=== PATIENT | female | born 1970 | race Caucasian/White ===

== ENCOUNTER 2019-10-22 14:37 | Outpatient (CLI) | payer OTHER, SELFPAY ==
--- NOTE | 2019-10-22 14:48 | XR_ITS ---
WS: [id number] Chest 2 views, 10/22/2019 Clinical Data: SHORTNESS OF BREATH, COUGH Comparison: PA chest, 07/29/2009. Findings: No nodules, masses or effusions are seen. The heart is normal. The pulmonary vascularity is not increased. No pneumonia or pneumothorax is seen. The patient's clothing obscures minimal detail over the central thorax. XR/XR chest 2V* [id number] Impression: Negative chest.
== END 2019-10-22 14:38 | disposition home or self-care (01) ==
LOC: RAD 14:41
PROVIDERS: Family Provider Family Medicine; Visit Provider Emergency Medicine
DX: R06.02 Shortness of breath (principal); R05 Cough
CPT/HCPCS: 71046

== ENCOUNTER → 2020-03-15 10:27 | Outpatient (BNVA) | payer OTHER, SELFPAY | PROVIDERS: Family Provider Family Medicine; Visit Provider Family Medicine | DX: Z20.828 Contact with and (suspected) exposure to other viral communicable diseases (principal) | CPT/HCPCS: 87635 ==

== ENCOUNTER 2020-10-20 18:11 | Outpatient (CLI) | payer OTHER, SELFPAY ==
[2020-10-22 14:17] LABS: Quest SARS-CoV-2 RNA NOT DETECTED (NOT DETECTED)
--- NOTE | 2020-10-22 17:34 | PC.NURSE ---
notified pt of negative COVID results
== END 2020-10-20 18:12 | disposition home or self-care (01) ==
PROVIDERS: Visit Provider Family Medicine
DX: Z20.822 Contact with and (suspected) exposure to COVID-19 (principal)
CPT/HCPCS: 87635

== ENCOUNTER 2021-03-30 15:31 | Outpatient (CLI) | payer OTHER, SELFPAY ==
[2021-03-30 16:17] LABS: Urine Color Orange (Yellow)
[2021-03-30 16:19] LABS: Nitrate Urine Not Tested (Negative)
[2021-03-30 16:20] LABS: Bilirubin Urine Not Tested (Negative); Protein Urine 2+ (Negative); Urine Appearance Hazy (CLEAR); Urobilinogen Urine Not Tested mg/dL (Negative); pH Urine 5 (5-7)
[2021-03-30 16:21] LABS: Add Urine Culture? Yes; Add Urine Microscopic? YES; Blood Urine Neg (Negative); Glucose Urine UA Norm (Normal); Ketones Urine Negative (Negative); Leukocyte Esterase Urine Negative (Negative); RBC Urine 0-4 /hpf (0-2); WBC Urine 0-4 /hpf (0-5)
== END 2021-03-30 15:32 | disposition home or self-care (01) ==
LOC: LAB 15:32
PROVIDERS: Visit Provider Nurse Practitioner Family
DX: N23 Unspecified renal colic (principal)
CPT/HCPCS: 81001

== ENCOUNTER → 2021-04-25 10:44 | Outpatient (BNVA) | payer OTHER, SELFPAY | PROVIDERS: Visit Provider Family Medicine | DX: Z20.822 Contact with and (suspected) exposure to COVID-19 (principal) | CPT/HCPCS: 87426; 87635 ==

== ENCOUNTER → 2022-02-04 09:18 | Outpatient (BNVA) | payer OTHER, SELFPAY | PROVIDERS: PCP Family Medicine; Visit Provider Clinical Nurse Specialist Adult Health | DX: J02.0 Streptococcal pharyngitis (principal) | CPT/HCPCS: 87880 ==

== ENCOUNTER → 2022-02-21 08:00 | Outpatient (BNVA) | payer OTHER, SELFPAY | PROVIDERS: PCP Family Medicine; Visit Provider Clinical Nurse Specialist Adult Health | DX: J02.0 Streptococcal pharyngitis (principal); J06.9 Acute upper respiratory infection, unspecified; B08.5 Enteroviral vesicular pharyngitis | CPT/HCPCS: 87400; 87880 ==

== ENCOUNTER 2022-02-25 18:28 | Outpatient (CLI) | payer OTHER, SELFPAY ==
[2022-02-25 19:02] LABS: SARS Covid-2 Antigen negative (Negative)
[2022-02-25 19:04] LABS: Influenza A by IFA Positive (Negative); Influenza B by IFA Negative (Negative)
== END 2022-02-25 18:29 | disposition home or self-care (01) ==
PROVIDERS: PCP Family Medicine; Visit Provider Emergency Medicine
DX: R05.9 Cough, unspecified (principal); R50.9 Fever, unspecified; R09.81 Nasal congestion
CPT/HCPCS: 87426; 87804

== ENCOUNTER → 2023-01-23 08:38 | Outpatient (BNVA) | payer OTHER, SELFPAY | PROVIDERS: PCP Family Medicine; Visit Provider Nurse Practitioner Family | DX: R05.9 Cough, unspecified (principal); U07.1 COVID-19 | CPT/HCPCS: 87426 ==

== ENCOUNTER → 2023-02-06 08:40 | Outpatient (BNVA) | payer OTHER, SELFPAY | PROVIDERS: PCP Family Medicine; Visit Provider Nurse Practitioner Family | DX: J02.9 Acute pharyngitis, unspecified (principal) | CPT/HCPCS: 87880 ==

== ENCOUNTER 2023-04-03 13:12 | Emergency (ER) | payer OTHER, SELFPAY ==
[2023-04-03 13:27] VITALS: BP 180/115; PULSE 67; TEMP 36.8; O2SAT 98; BMI 43.0
--- NOTE | 2023-04-03 13:34 | CTR_ITS ---
PROCEDURE INFORMATION: Exam: CT Abdomen And Pelvis Without Contrast Exam date and time: 04/03/2023 2:11 PM Age: 52 years old Clinical indication: Abdominal pain; Flank; Right; Prior surgery; Surgery date: 6+ months; Surgery type: , karina, parital hyst; Additional info: Right flank pain TECHNIQUE: Imaging protocol: Computed tomography of the abdomen and pelvis without contrast. Radiation optimization: All CT scans at this facility use at least one of these dose optimization techniques: automated exposure control; mA and/or kV adjustment per patient size (includes targeted exams where dose is matched to clinical indication); or iterative reconstruction. REPORTING DATA: Count of CT and Cardiac NM exams in prior 12 months: This patient has received 0 known CTs and 0 known cardiac nuclear medicine studies in the 12 months prior to the current study. COMPARISON: CR XR chest 2V* [id number] 10/22/2019 3:13 PM RADIATION DOSE METRICS: Total DLP (mGy-cm): 1086 FINDINGS: Liver: No mass. Gallbladder and bile ducts: No calcified stones. No ductal dilation. Pancreas: No ductal dilation. Spleen: No splenomegaly. Adrenal glands: No mass. Kidneys and ureters: 8 mm proximal right ureteral calculus with severe hydronephrosis. Stomach and bowel: No obstruction. Appendix: No evidence of appendicitis. Intraperitoneal space: No free air. No significant fluid collection. Vasculature: No abdominal aortic aneurysm. Lymph nodes: No enlarged lymph nodes. Urinary bladder: No acute findings. Reproductive: Unremarkable as visualized. Bones/joints: Degenerative changes without acute findings. Soft tissues: Unremarkable. CT/CT kidney stone [id number] IMPRESSION: 8 mm right proximal ureteral calculus with severe hydronephrosis.
[2023-04-03] MEDS: sodium chloride 0.9% 1,000 ML 999 ML IV (13:41)
[2023-04-03] MEDS: ondansetron 2 mg/ML SDV 2 mL 4 MG IVP (13:42)
[2023-04-03] MEDS: ketorolac 30 mg/mL INJ IVP (13:42)
[2023-04-03 13:43] LABS: Basophils # 0.1 10^3/uL (0.0-0.1); Eosinophils # 0.2 10^3/uL (0.0-0.8); Eosinophils % 2.3 %; Hematocrit 42.2 % (36-47); Lymphocytes # 1.9 10^3/uL (0.8-4.8); Lymphocytes % 19.3 %; Mean Corpuscular HGB Conc 30.6 g/dL (30-55); Mean Corpuscular Hemoglobin 26.5 pg (27-33); Mean Corpuscular Volume 86.7 fl (85-98); Mean Platelet Volume 10.8 fL (7.4-10.4); Monocytes # 0.7 10^3/uL (0.2-0.9); Monocytes % 7.2 %; Neutrophils # 6.83 10^3/uL (1.8-7.7); Neutrophils % 69.7 %; Nucleated Red Blood Cells % 0 %; Platelet Count 319 10^3/cmm (157-399); Red Blood Count 4.87 10^6/uL (3.85-5.65); Red Cell Distribution Width 14.9 % (12.1-15.1); White Blood Count 9.81 10^3/uL (3.29-11.43)
--- NOTE | 2023-04-03 13:43 | ED_ITS ---
HPI - Female Genitourinary 2 General: Chief complaint: Urogenital-Female Stated complaint: adp, vomitting Time Seen by Provider: 04/03/23 13:27 Source: patient Mode of arrival: ambulatory Limitations: no limitations History of Present Illness: 52-year-old female states she had right flank pain that began this morning and is worsened throughout the day states pain is now very sharp in nature and radiating into her lower abdomen rates the pain an 8 out of 10 denies any tenderness to touch she denies any fever she has had some vomiting states she has had a hard time urinating as well. Associated symptoms: Reports abdominal pain and nausea; Deny headache(s) Review of Systems 2 Const: Denies: fever(s) or chills Eyes: Denies: eye discomfort ENMT: Denies: throat pain or dental pain Card: Denies: chest pain Resp: Denies: dyspnea GI: Reports: abdominal pain and nausea; Denies: vomiting or diarrhea : Reports: flank pain Musc: Denies: neck pain or back pain Skin/Breast: Denies: rash Neuro: Denies: headache(s) PFSH ED 2 PFSH: Medical History Major depression Generalized anxiety disorder Social History Smoking and tobacco/nicotine status: current some day tobacco/nicotine user Physical Exam 2 Const: COMMON NORMALS: no acute distress, patient oriented x3 and healthy appearing HENMT: COMMON NORMALS: normocephalic and atraumatic HEAD & SCALP: n ormocephalic and atraumatic Neck/C-Spine: COMMON NORMALS: full ROM and supple Chest: COMMONS NORMALS: normal inspection of the chest Resp: COMMON NORMALS: normal respiratory effort GI: COMMON NORMALS: Normal to inspection, nondistended, normoactive bowel sounds present, Soft to palpation, non-tender and no masses PALPATION: Yes Soft to palpation : COMMON NORMALS: Yes no CVA tenderness BLADDER/KIDNEY EXAM: Yes no CVA tenderness Back/Pelvis: COMMON NORMALS: no CVA tenderness Extremity: COMMON NORMALS: normal to inspection and full ROM Neuro: COMMON NORMALS: patient oriented x3, moves all extremities and no focal motor deficits Psych: COMMON NORMALS: mental status grossly normal, Normal thought process present and cooperative THOUGHT PROCESS: Normal thought process present Skin: COMMON NORMALS: no rashes or lesions noted and no wounds GENERAL SKIN EXAM: no rashes or lesions noted Course 2 Vital Signs: Vital signs: Vital Signs Temperature 98.3 F 04/03/23 13:27 Pulse Rate 61 04/03/23 15:17 Blood Pressure 190/94 04/03/23 15:17 Pulse Oximetry 95 04/03/23 15:17 Oxygen Delivery Me thod Room Air 04/03/23 15:17 MDM - Female Medical Decision Making Patient presents here with flank pain does have a kidney stone did have some nitrite on her urine she is afebrile here and has a normal white count she took an Azo this morning I did speak to urologist at [facility] Dr. Edwards who is going to see patient in 1 to 4 days. I am going to place her on Keflex along with pain medicine she is to follow-up with urology as scheduled I informed her if she has any worsening pain vomiting or fever she is to return to the ER immediately she understands agrees to plan Medical Records I reviewed the patient's medical records. Lab Data I reviewed the patient's lab results. 04/03/23 13:38 04/03/23 13:38 Radiology Impressions Abdomen/Pelvis CT 04/03/23 13:34 IMPRESSION: 8 mm right proximal ureteral calculus with severe hydronephrosis. Laboratory Results WBC 9.81 10^3/uL (3.29-11.43) 04/03/23 13:38 RBC 4.87 10^6/uL (3.85-5.65) 04/03/23 13:38 Hgb 12.90 g/dL (11.27-16.99) 04/03/23 13:38 Hct 42.2 % (36-47) 04/03/23 13:38 MCV 86.7 fl (85-98) 04/03/23 13:38 MCH 26.5 pg (27-33) L 04/03/23 13:38 MCHC 30.6 g/dL (30-55) 04/03/23 13:38 RDW 14.9 % (12.1-15.1) 04/03/23 13:38 Plt Count 319 10^3/cmm (157-399) 04/03/23 13:38 MPV 10.8 fL (7.4-10.4) H 04/03/23 13:38 Neut % (Auto) 69.7 % 04/03/23 13:38 Lymph % (Auto) 19.3 % 04/03/23 13:38 [place] % (Auto) 7.2 % 04/03/23 13:38 Eos % (Auto) 2.3 % 04/03/23 13:38 Baso % (Auto) 1.0 % 04/03/23 13:38 Neut # (Auto) 6.83 10^3/uL (1.8-7.7) 04/03/23 13:38 Lymph # (Auto) 1.9 10^3/uL (0.8-4.8) 04/03/23 13:38 [place] # (Auto) 0.7 10^3/uL (0.2-0.9) 04/03/23 13:38 Eos # (Auto) 0.2 10^3/uL (0.0-0.8) 04/03/23 13:38 Baso # (Auto) 0.1 10^3/uL (0.0-0.1) 04/03/23 13:38 Nucleated RBC % (auto) 0 % 04/03/23 13:38 Nucleated RBCs # 0.0 /100WBC 04/03/23 13:38 Sodium 139 mmol/L (136-145) 04/03/23 13:38 Potassium 4.3 mmol/L (3.5-5.1) 04/03/23 13:38 Chloride 105 mmol/L (98-107) 04/03/23 13:38 Carbon Dioxide 20 mmol/L (22-29) L 04/03/23 13:38 Anion Gap 18.3 (5-19) 04/03/23 13:38 BUN 24 mg/dL (6-20) H 04/03/23 13:38 Creatinine 0.9 mg/dL (0.5-0.9) 04/03/23 13:38 GFR Calculation 66.3 mL/min (90-130) L 04/03/23 13:38 Glucose 110 mg/dL (65-115) 04/03/23 13:38 Calculated Osmolality 293 mOsm/kg (285-295) 04/03/23 13:38 Calcium 9.7 mg/dL (8.5-10.5) 04/03/23 13:38 Total Bilirubin 0.2 mg/dL (0.15-1.2) 04/03/23 13:38 AST 17 U/L (0-32) 04/03/23 13:38 ALT 17 U/L (0-33) 04/03/23 13:38 Alkaline Phosphatase 80 U/L (35-105) 04/03/23 13:38 Total Protein 7.4 g/dL (6.6-8.7) 04/03/23 13:38 Albumin 4.3 g/dL (3.5-5.2) 04/03/23 13:38 Globulin 3.1 g/dL (1.3-4.6) 04/03/23 13:38 Lipase 47 U/L (13-60) 04/03/23 13:38 Urine Color [place] (Yellow) A 04/03/23 14:27 Urine Appearance Clear (CLEAR) 04/03/23 14:27 Urine pH 5 (5-7) 04/03/23 14:27 Ur Specific [place] 1.025 (1.005-1.030) 04/03/23 14:27 Urine Protein 3+ (Negative) H 04/03/23 14:27 Urine Glucose (UA) Norm (Normal) 04/03/23 14:27 Urine Ketones Negative (Negative) 04/03/23 14:27 Urine Blood 2+ (Negative) H 04/03/23 14:27 Urine Nitrate Positive (Negative) H 04/03/23 14:27 Urine Bilirubin 2+ (Negative) H 04/03/23 14:27 Urine Urobilinogen 8 mg/dL (Negative) H 04/03/23 14:27 Ur Leukocyte Esterase Negative (Negative) 04/03/23 14:27 Urine RBC 10-15 /hpf (0-2) H 04/03/23 14:27 Urine WBC 5-10 /hpf (0-5) H 04/03/23 14:27 Ur Squamous Epith Cells 0-4 /hpf (0-5) H 04/03/23 14:27 Amorphous Sediment Not Reportable 04/03/23 14:27 Urine Bacteria 1+ /hpf (NONE) H 04/03/23 14:27 Urine Mucus 1+ /hpf 04/03/23 14:27 All radiology interpretation(s) finalized by discharge Discharge Plan Discharge Patient Disposition: Home Clinical Impression: Kidney stone Condition: Stable Prescriptions: New hydrocodone-acetaminophen 5-325 mg tablet 1 tab PO Q6H PRN (Reason: pain) Qty: 14 0RF cephalexin 500 mg capsule 500 mg PO TID 7 Days Qty: 21 0RF ondansetron 4 mg tablet,disintegrating 4 mg PO Q6H PRN (Reason: nausea and vomiting) Qty: 14 0RF tamsulosin [Flomax] 0.4 mg capsule 0.4 mg PO DAILY Qty: 5 0RF No Action amoxicillin 875 mg tablet 875 mg PO BID 7 Days Qty: 14 0RF albuterol sulfate [Ventolin HFA] 90 mcg/actuation HFA aerosol inhaler 2 puff inhalation Q6H PRN (Reason: shortness of breath or wheezing) Qty: 8.5 0RF promethazine-DM 6.25-15 mg/5 mL syrup 5 ml PO Q6H PRN (Reason: cough) Qty: 200 0RF prednisone 20 mg tablet See Rx Instructions .Route .COMPLEX Qty: 14 0RF Rx Instructions: 2 tabs PO daily for 4 days, then 1 tab PO daily X 4 days, then 0.5 tab daily for 4 days, then stop; benzonatate 100 mg capsule 100 mg PO TID PRN (Reason: cough) Qty: 45 0RF escitalopram oxalate 10 mg tablet See Rx Instructions .ROUTE .COMPLEX Qty: 30 10RF Dose Instruction: TAKE 1 TABLET BY MOUTH EVERY DAY Rx Instructions: TAKE 1 TABLET BY MOUTH EVERY DAY propranolol 60 mg tablet See Rx Instructions .ROUTE .COMPLEX Qty: 60 10RF Dose Instruction: TAKE 1 TABLET BY MOUTH TWICE DAILY Rx Instructions: TAKE 1 TABLET BY MOUTH TWICE DAILY clonazepam 0.5 mg tablet 0.5 mg PO BID Qty: 60 2RF Discharge Orders: Discharge ED (Routine); Ordered 04/03/23 Ordered By: Lyly Carolina Referrals: Guy Bliss MD [Primary Care Provider] - Discharge Diet: Advance as tolerated Discharge Activity: Resume usual activity Patient Instructions: Kidney Stones (ED), Opioid Safety Coding Level of Care Code ED [employer] Dispatcher for Ericg Sarika
[2023-04-03 14:05] LABS: Alanine Aminotransferase 17 U/L (0-33); Albumin Level 4.3 g/dL (3.5-5.2); Alkaline Phosphatase 80 U/L (35-105); Anion Gap 18.3 (5-19); Aspartate Amino Transferase 17 U/L (0-32); Blood Urea Nitrogen 24 mg/dL (6-20); Calcium 9.7 mg/dL (8.5-10.5); Carbon Dioxide 20 mmol/L (22-29); Chloride 105 mmol/L (98-107); Globulin 3.1 g/dL (1.3-4.6); Glomerular Filtration Rate 66.3 mL/min (90-130); Glucose 110 mg/dL (65-115); Lipase 47 U/L (13-60); Osmolality Calculated 293 mOsm/kg (285-295); Potassium 4.3 mmol/L (3.5-5.1); Sodium 139 mmol/L (136-145); Total Bilirubin 0.2 mg/dL (0.15-1.2); Total Protein 7.4 g/dL (6.6-8.7)
[2023-04-03 14:54] LABS: Urine Appearance Clear (CLEAR); Urine Color Orange (Yellow)
[2023-04-03 14:55] LABS: Blood Urine 2+ (Negative); Glucose Urine UA Norm (Normal); Ketones Urine Negative (Negative); Nitrate Urine Positive (Negative); Protein Urine 3+ (Negative); Specific Gravity, Urine 1.025 (1.005-1.030); pH Urine 5 (5-7)
[2023-04-03 14:56] LABS: Bilirubin Urine 2+ (Negative); Urobilinogen Urine 8 mg/dL (Negative)
[2023-04-03 14:57] LABS: Add Urine Culture? Yes; Add Urine Microscopic? YES; Bacteria Urine 1+ /hpf; Leukocyte Esterase Urine Negative (Negative); Mucus Urine 1+ /hpf; Squamous Epithelial Cell Urine 0-4 /hpf (0-5)
[2023-04-03] MEDS: HYDROmorphone 1 mg/mL INJ 1 mL IVP (15:11)
[2023-04-03 15:17] VITALS: BP 190/94; PULSE 61; O2SAT 95
[2023-04-03] MEDS: cephALEXin 500 mg Capsule PO (16:04)
== END 2023-04-03 16:16 | disposition home or self-care (01) ==
PROVIDERS: Emergency Provider Emergency Medicine; PCP Family Medicine
DX: N13.2 Hydronephrosis with renal and ureteral calculous obstruction (principal); Z72.0 Tobacco use
CPT/HCPCS: 74176; 80053; 81001; 83690; 85025; 87086; 96374; 96375; 99285; J1170; J1885; J2405; J7030

== ENCOUNTER → 2023-07-21 13:56 | Outpatient (BNVA) | payer OTHER, SELFPAY | PROVIDERS: PCP Family Medicine; Visit Provider Family Medicine | DX: I10 Essential (primary) hypertension (principal) | CPT/HCPCS: 80053 ==

== ENCOUNTER 2023-12-15 18:21 | Emergency (ER) | payer OTHER, SELFPAY ==
--- NOTE | 2023-12-15 18:21 | XRR_ITS ---
PROCEDURE INFORMATION: Exam: XR Chest Exam date and time: 12/15/2023 6:53 PM Age: 52 years old Clinical indication: Pain; Chest pressure; Additional info: Cp TECHNIQUE: Imaging protocol: Radiologic exam of the chest. Views: 1 view. COMPARISON: CR XR chest 2V* [id number] 10/22/2019 3:13 PM FINDINGS: Lungs: Unremarkable. No consolidation. Pleural spaces: Unremarkable. No pleural effusion. No pneumothorax. Heart/Mediastinum: Unremarkable. No cardiomegaly. Bones/joints: Unremarkable. XR/XR chest 1V portable [id number] IMPRESSION: No acute findings.
--- NOTE | 2023-12-15 18:22 | ECG_ITS ---
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 Measurements Intervals [place] Rate: 81 P: 40 [place]: 138 QRS: 49 QRSD: 92 T: 55 QT: 377 QTc: 440 Interpretive Statements SINUS RHYTHM POSSIBLE LEFT ATRIAL ENLARGEMENT [-0.1mV P-WAVE IN V1/V2] Compared to ECG 04/06/2018 14:59:30 No significant changes Electronically Signed On 12-16-2023 7:49:20 CDT by Brett Peñaloza M.D. [id number]
[2023-12-15 18:28] VITALS: BP 173/105; PULSE 80; TEMP 36.6; O2SAT 98; BMI 43.8
[2023-12-15 18:51] LABS: Basophils # 0.1 10^3/uL (0.0-0.1); Basophils % 1.1 %; Eosinophils # 0.3 10^3/uL (0.0-0.8); Eosinophils % 2.9 %; Hematocrit 42.4 % (36-47); Lymphocytes # 3.5 10^3/uL (0.8-4.8); Lymphocytes % 35.7 %; Mean Corpuscular HGB Conc 30.9 g/dL (30-55); Mean Corpuscular Hemoglobin 25.4 pg (27-33); Mean Corpuscular Volume 82.3 fl (85-98); Mean Platelet Volume 10.4 fL (7.4-10.4); Monocytes # 0.7 10^3/uL (0.2-0.9); Neutrophils # 5.24 10^3/uL (1.8-7.7); Neutrophils % 52.8 %; Nucleated Red Blood Cells % 0 %; Platelet Count 349 10^3/cmm (157-399); Red Blood Count 5.15 10^6/uL (3.85-5.65); Red Cell Distribution Width 15.7 % (12.1-15.1); White Blood Count 9.92 10^3/uL (3.29-11.43)
[2023-12-15 19:10] LABS: INR 0.89 (0.8-1.2)
[2023-12-15] MEDS: ondansetron 2 mg/ML SDV 2 mL 4 MG IVP (19:10)
[2023-12-15 19:11] VITALS: RESP 18
[2023-12-15] MEDS: morphine 4 mg/mL SDV 1 mL IVP (19:11)
[2023-12-15 19:15] LABS: Alanine Aminotransferase 23 U/L (0-33); Albumin Level 4.4 g/dL (3.5-5.2); Alkaline Phosphatase 84 U/L (35-105); Anion Gap 16.2 (5-19); Aspartate Amino Transferase 21 U/L (0-32); Blood Urea Nitrogen 18 mg/dL (6-20); Calcium 9.7 mg/dL (8.5-10.5); Carbon Dioxide 26 mmol/L (22-29); Chloride 103 mmol/L (98-107); Creatinine Clr Calc Pharmacy 116.5594; Globulin 2.5 g/dL (1.3-4.6); Glomerular Filtration Rate 75.9 mL/min (90-130); Glucose 120 mg/dL (65-115); Lipase 43 U/L (13-60); Osmolality Calculated 295 mOsm/kg (285-295); Potassium 4.2 mmol/L (3.5-5.1); Sodium 141 mmol/L (136-145); Total Bilirubin 0.2 mg/dL (0.15-1.2); Total Protein 6.9 g/dL (6.6-8.7); Troponin(5th) Baseline < 6 ng/L (0-10)
[2023-12-15 19:27] VITALS: BP 148/114; PULSE 78; RESP 21; O2SAT 98
--- NOTE | 2023-12-15 19:38 | CTR_ITS ---
PROCEDURE INFORMATION: Exam: CTA Chest With Contrast Exam date and time: 12/15/2023 7:44 PM Age: 52 years old Clinical indication: Pain; Chest pressure; Additional info: Chest pain TECHNIQUE: Imaging protocol: Computed tomographic angiography of the chest with contrast. Exam focused on the arteries. 3D rendering (Not supervised by radiologist): MIP and/or 3D reconstructed images were created by the technologist. Radiation optimization: All CT scans at this facility use at least one of these dose optimization techniques: automated exposure control; mA and/or kV adjustment per patient size (includes targeted exams where dose is matched to clinical indication); or iterative reconstruction. Contrast material: OMNI 350; Contrast volume: 66 ml; Contrast route: INTRAVENOUS (IV); COMPARISON: CR (CHEST, ) 12/15/2023 6:53 PM RADIATION DOSE METRICS: Total DLP (mGy-cm): 574 FINDINGS: Pulmonary arteries: Normal. No pulmonary emboli. Aorta: Unremarkable. No aortic aneurysm. No aortic dissection. Lungs: Curvilinear areas of left basilar atelectasis or scarring. No consolidation. No masses. Pleural spaces: Unremarkable. No pneumothorax. No pleural effusion. Heart: Unremarkable. No cardiomegaly. No pericardial effusion. Lymph nodes: Unremarkable. No enlarged lymph nodes. Bones/joints: Unremarkable. No acute fracture. Soft tissues: Unremarkable. CT/CT angio chest PE protcl [id number] IMPRESSION: No acute findings. Negative for pulmonary embolism.
[2023-12-15] MEDS: iohexol 350 mg/mL 500 mL Btl (per mL) IV (19:47)
--- NOTE | 2023-12-15 19:54 | ED_ITS ---
HPI - Chest Pain 2 General: Chief Complaint: Chest Pain Stated Complaint: Chest Pain Time Seen by Provider: 12/15/23 18:34 History of Present Illness: -year-old female with a history of hyper tension who presents emergency room with left chest pain. She was at work yesterday was having some chest pain that she thought might be anxiety. She describes the left chest pain with pain in her left back and radiation into her left arm. No cardiac history. No extremity swelling. No abdominal pain. No nausea or vomiting. No cough. No fevers. No altered mental status. No focal motor deficit. She did take multiple nitroglycerin from her which did seem to help some with the pain and her blood pressure. Related Data Previous Rx's Medication Instructions Recorded amlodipine 5 mg tablet 5 mg PO DAILY #30 tabs 08/14/23 venlafaxine 150 mg 150 mg PO DAILY #30 caps 08/14/23 capsule,extended release 24 hr clonazepam 0.5 mg tablet 0.5 mg PO BID #60 tabs 10/16/23 Allergies Allergy/AdvReac Type Severity Reaction Status Date / Time lisinopril Allergy Intermediate cough Verified 12/15/23 18:33 Review of Systems 2 Narrative: Constitutional symptoms: Negative except as documented in HPI. Skin symptoms: Negative except as documented in HPI. Eye symptoms: Negative except as documented in HPI. ENMT symptoms: Negative except as documented in HPI. Respiratory symptoms: Negative except as documented in HPI. Cardiovascular symptoms: Negative except as documented in HPI. Gastrointestinal symptoms: Negative except as documented in HPI. Genitourinary symptoms: Negative except as documented in HPI. Musculoskeletal symptoms: Negative except as documented in HPI. Neurologic symptoms: Negative except as documented in HPI. Psychiatric symptoms: Negative except as documented in HPI. Endocrine symptoms: Negative except as documented in HPI. PFSH ED 2 PFSH: Medical History Major depression Generalized anxiety disorder Social History Smoking and tobacco/nicotine status: current some day tobacco/nicotine user Physical Exam 2 Narrative: EXAM NARRATIVE: General: Alert, no acute distress. Skin: Warm, dry. Head: Normocephalic, atraumatic. Neck: Supple, trachea midline. Eye: Extraocular movements are intact. Ears, nose, mouth and throat: mucosa moist. Cardiovascular: Regular, Normal peripheral perfusion. Respiratory: Lungs are clear to auscultation, respirations are non-labored, breath sounds are equal, Symmetrical chest wall expansion. Gastrointestinal: Soft, Nontender, Non distended Musculoskeletal: Normal ROM, no deformity. Neurological: Alert and oriented, No focal neurological deficit observed. Psychiatric: Cooperative, appropriate mood & affect. Course 2 Vital Signs: Vital signs: Vital Signs Temperature 97.9 F 12/15/23 18:28 Pulse Rate 68 12/15/23 20:55 Respiratory Rate 16 12/15/23 20:55 Blood Pressure 141/101 12/15/23 20:55 Pulse Oximetry 99 12/15/23 20:55 Oxygen Delivery Me thod Room Air 12/15/23 20:55 MDM - Chest Pain Medical Decision Making Differential diagnosis for patient with chest pain includes but is not limited to and based on the above HPI, review of systems and physical exam: Pneumonia. unstable angina. angina. Acute coronary syndrome / NM. Pulmonary embolism. Costochondritis / musculoskeletal. Pleurisy. Pericarditis. Esophageal spasm. Pancreatis. Cholecystitis. Orders placed to evaluate differential diagnosis based on the above differential, HPI and physical exam EKG: Time 1825. Rate 81. Normal sinus rhythm, No ST-T changes, no ectopy, normal [place] & QRS intervals, This was reviewed and interpreted by myself the ER physician at 1830. Repeat EKG: Time 2051. Rate 64. Normal sinus rhythm, No ST-T changes, no ectopy, normal [place] & QRS intervals, This was reviewed and interpreted by myself the ER physician at 2052. No significant changes from EKG done previously today in the emergency room other than the heart rate has decreased from 80-64. Chest x-ray: No acute process. No infiltrate. No pneumothorax. This was reviewed and interpreted by myself the ER physician. CTA of the chest with PE protocol: No acute process. This was reviewed and interpreted by myself the emergency room physician. I also reviewed the radiology report. Lab Review: Laboratory results were reviewed and interpreted by myself the emergency room physician. No leukocytosis. No anemia. BUN/creatinine are 18 and 0.8. Potassium is normal. Serial troponins are negative. HEART Pathway for Early Discharge in Acute Chest Pain from [facility] on 12/15/2023 All calculations should be rechecked by clinician prior to use RESULT SUMMARY: 3 points HEART Pathway Score Low risk 0.9-1.7% 30-day MACE Repeat troponin at 3 hours and if negative, discharge home with outpatient follow-up. INPUTS: History ?> 1 = Moderately suspicious EKG ?> 0 = Normal Age ?> 1 = 45-64 Risk factors ?> 1 = 1-2 risk factors Initial troponin ?> 0 = <=ormal limit I reviewed the patient's medical record. Reexamination: Patient remained stable. No increased work of breathing. No altered mental status. No focal motor deficits. Chest pain has improved to almost nothing at this point. We discussed at length this could be musculoskeletal pain. However most importantly she is not having any elevation in her cardiac markers which would indicate no ischemia or acute coronary syndrome at this time. Her blood pressure has improved some. We discussed getting a stress test in the very near future. Assessment and plan: Accelerated hypertension Chest pain ?Morphine and Zofran in the emergency room. - Discharged home - Discussed findings and plan with patient. Answered any questions. - All laboratory values were reviewed and interpreted personally by myself, the ER physician - All imaging was reviewed and interpreted personally by myself, the ER physician. - Evaluation and treatment of this problem were appropriate in the emergency setting Lab Data 12/15/23 18:46 12/15/23 18:46 Radiology Impressions Chest X-Ray 12/15/23 18:21 IMPRESSION: No acute findings. Chest CTA 12/15/23 19:38 IMPRESSION: No acute findings. Negative for pulmonary embolism. Laboratory Results WBC 9.92 10^3/uL (3.29-11.43) 12/15/23 18:46 RBC 5.15 10^6/uL (3.85-5.65) 12/15/23 18:46 Hgb 13.10 g/dL (11.27-16.99) 12/15/23 18:46 Hct 42.4 % (36-47) 12/15/23 18:46 MCV 82.3 fl (85-98) L 12/15/23 18:46 MCH 25.4 pg (27-33) L 12/15/23 18:46 MCHC 30.9 g/dL (30-55) 12/15/23 18:46 RDW 15.7 % (12.1-15.1) H 12/15/23 18:46 Plt Count 349 10^3/cmm (157-399) 12/15/23 18:46 MPV 10.4 fL (7.4-10.4) 12/15/23 18:46 Neut % (Auto) 52.8 % 12/15/23 18:46 Lymph % (Auto) 35.7 % 12/15/23 18:46 [place] % (Auto) 7.0 % 12/15/23 18:46 Eos % (Auto) 2.9 % 12/15/23 18:46 Baso % (Auto) 1.1 % 12/15/23 18:46 Neut # (Auto) 5.24 10^3/uL (1.8-7.7) 12/15/23 18:46 Lymph # (Auto) 3.5 10^3/uL (0.8-4.8) 12/15/23 18:46 [place] # (Auto) 0.7 10^3/uL (0.2-0.9) 12/15/23 18:46 Eos # (Auto) 0.3 10^3/uL (0.0-0.8) 12/15/23 18:46 Baso # (Auto) 0.1 10^3/uL (0.0-0.1) 12/15/23 18:46 Nucleated RBC % (auto) 0 % 12/15/23 18:46 Nucleated RBCs # 0.0 /100WBC 12/15/23 18:46 PT 12.30 SECONDS (12.1-14.9) 12/15/23 18:46 INR 0.89 (0.8-1.2) 12/15/23 18:46 Sodium 141 mmol/L (136-145) 12/15/23 18:46 Potassium 4.2 mmol/L (3.5-5.1) 12/15/23 18:46 Chloride 103 mmol/L (98-107) 12/15/23 18:46 Carbon Dioxide 26 mmol/L (22-29) 12/15/23 18:46 Anion Gap 16.2 (5-19) 12/15/23 18:46 BUN 18 mg/dL (6-20) 12/15/23 18:46 Creatinine 0.8 mg/dL (0.5-0.9) 12/15/23 18:46 GFR Calculation 75.9 mL/min (90-130) L 12/15/23 18:46 Glucose 120 mg/dL (65-115) H 12/15/23 18:46 Calculated Osmolality 295 mOsm/kg (285-295) 12/15/23 18:46 Calcium 9.7 mg/dL (8.5-10.5) 12/15/23 18:46 Total Bilirubin 0.2 mg/dL (0.15-1.2) 12/15/23 18:46 AST 21 U/L (0-32) 12/15/23 18:46 ALT 23 U/L (0-33) 12/15/23 18:46 Alkaline Phosphatase 84 U/L (35-105) 12/15/23 18:46 Troponin T Baseline < 6 ng/L (0-10) 12/15/23 18:46 Troponin T 120 Minute 6.00 ng/L (0-10) 12/15/23 20:24 Delta Troponin T 0.11534 ABS# (0-10) 12/15/23 20:24 Total Protein 6.9 g/dL (6.6-8.7) 12/15/23 18:46 Albumin 4.4 g/dL (3.5-5.2) 12/15/23 18:46 Globulin 2.5 g/dL (1.3-4.6) 12/15/23 18:46 Lipase 43 U/L (13-60) 12/15/23 18:46 All radiology interpretation(s) finalized by discharge Discharge Plan Discharge Patient Disposition: Home Clinical Impression: Chest pain, Accelerated hypertension Condition: Stable Prescriptions: No Action venlafaxine 150 mg capsule,extended release 24hr 150 mg PO DAILY Qty: 30 11RF amlodipine 5 mg tablet 5 mg PO DAILY Qty: 30 11RF clonazepam 0.5 mg tablet 0.5 mg PO BID Qty: 60 2RF Discharge Orders: Discharge ED (Routine); Ordered 12/15/23 Ordered By: Silvia Morocho Referrals: Guy Bliss MD [Primary Care Provider] - Discharge Diet: Usual diet Discharge Activity: Increase activity as tolerated Patient Instructions: Noncardiac Chest Pain (ED) Activity Restrictions/Additional Instructions: Thank you for choosing [facility] for your healthcare needs today. Please realize this is an emergency room and that we are providing you with a medical screening exam and this may not be complete and all inclusive of all the testing and or work up that you may need to determine your ailment or severity of your illness. You have been screened and evaluated and felt safe for discharge. Health conditions do change or evolve sometimes and as such it is important that you follow up with your Primary Doctor to be re checked, 3-5 days is a general good time frame for follow up. You are always welcome to return to the ED for re assessment if your symptoms are worsening or you have new concerns Coding Level of Care Code ED Machine Packager for Huyen Baum
[2023-12-15 20:19] VITALS: BP 148/100; PULSE 71; RESP 18; O2SAT 97
[2023-12-15 20:46] LABS: Troponin 5 2HR Delta 0.00001 ABS# (0-10)
--- NOTE | 2023-12-15 20:52 | ECG_ITS ---
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 Measurements Intervals [place] Rate: 64 P: 39 [place]: 138 QRS: 43 QRSD: 106 T: 51 QT: 430 QTc: 447 Interpretive Statements SINUS RHYTHM Compared to ECG 12/15/2023 18:26:22 No significant changes Electronically Signed On 12-16-2023 7:48:14 CDT by Brett Peñaloza M.D. [id number]
[2023-12-15 20:55] VITALS: BP 141/101; PULSE 68; RESP 16; O2SAT 99
[2023-12-15 21:01] VITALS: BP 156/103; PULSE 74; RESP 16; O2SAT 98
== END 2023-12-15 21:08 | disposition home or self-care (01) ==
PROVIDERS: Emergency Medicine; Emergency Provider Emergency Medicine; PCP Family Medicine
DX: R07.9 Chest pain, unspecified (principal); I10 Essential (primary) hypertension; Z72.0 Tobacco use
CPT/HCPCS: 36415; 71045; 71275; 80053; 83690; 84484; 85025; 85610; 93005; 96374; 96375; 99285; J2270; J2405

== ENCOUNTER 2023-12-23 07:12 | Day surgery (SDC) | payer OTHER, SELFPAY ==
[2023-12-23 07:39] VITALS: BP 164/94; PULSE 84; RESP 18; TEMP 36.3; O2SAT 97
[2023-12-23] MEDS: sodium chloride 0.9% 1,000 ML 30 ML IV (07:45)
--- NOTE | 2023-12-23 07:51 | W.PM.OPSUD ---
Surgery/Procedure H&P Update DATE OF PROCEDURE: December 23, 2023 DATE H&P PERFORMED: 12/18/23 H&P UPDATE INFORMATION: I have reviewed H&P completed within last 30 days, I have examined patient prior to procedure and No changes to prior documentation PLANNED PROCEDURE: Operation Date: 12/23/23 08:20 Proposed Procedures p EGD 32489, K25.9(Not Applicable) - Speedy Aponte MD
--- NOTE | 2023-12-23 08:09 | ANES.PREANE2 ---
Pre-Anesthetic Assessment Height/Weight: Height 5 ft 7 in Weight 279 lb Temp Pulse Resp BP Pulse Ox O2 Del Method 97.4 F L 84 18 164/94 97 Room Air 12/23/23 07:39 12/23/23 07:39 12/23/23 07:39 12/23/23 07:39 12/23/23 07:39 12/23/23 07:39 Preop Diagnosis: EGD Operation Date: 12/23/23 08:20 Proposed Procedures p EGD 19851, K25.9(Not Applicable) - Speedy Aponte MD Was Beta Deo taken within 24 hours: N/A Was Clonidine taken within 24 hours: N/A Last intake: Intake Last Liquid Date 12/22/23 Last Liquid Time 23:00 Last Solid Date 12/22/23 Last Solid Time 22:00 Social Tobacco and No alcohol Exam alert, oriented x 3, clear to auscultation bilaterally and regular rate & rhythm Airway Submandibular: within normal limits Cervical ROM: within normal limits Mallampati: Class III Dentition: full Anesthetic Plan ASA status: 3 Anesthesia: MAC Other: No prior issues with anesthesia NPO since midnight Hypertension on amlodipine Patient was recently seen in the ED for chest pain, cardiac workup negative GERD on omeprazole and pantoprazole Current smoker METs greater than 4 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 Plan for 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 Medications/Allergies Home Medications Medication Instructions Recorded Confirmed Last Taken Type venlafaxine 150 mg 150 mg PO DAILY #30 caps 08/14/23 12/22/23 12/22/23 Rx capsule,extended release 24 hr clonazepam 0.5 mg tablet 0.5 mg PO BID #60 tabs 10/16/23 12/22/23 12/23/23 Rx amlodipine 5 mg tablet 5 mg PO BID #60 tabs 12/16/23 12/22/23 12/23/23 Rx pantoprazole 40 mg tablet,delayed 40 mg PO DAILY #30 tabs 12/16/23 12/22/23 12/22/23 Rx release (Protonix) sucralfate 100 mg/mL oral 5 ml PO QID #400 mL 12/16/23 12/22/23 12/23/23 Rx suspension (Carafate) omeprazole 10 mg capsule,delayed 10 mg PO BID 12/18/23 12/22/23 12/22/23 History release Allergies Allergy/AdvReac Type Severity Reaction Status Date / Time lisinopril Allergy Intermediate cough Verified 12/18/23 10:46 Current Medications Generic Name Dose Route Start Last Admin Trade Name Den PRN Reason Stop Dose Admin Sodium Chloride 1,000 mls @ 30 mls/hr 12/23/23 07:15 12/23/23 07:45 Sodium Chloride 0.9% IV 12/24/23 07:14 30 mls/hr .Q24H ELAINE Administration PFSH Anesthesia Medical History (Updated 12/23/23 @ 00:01 by ELVIN Welch) Major depression Generalized anxiety disorder Family History (Updated 12/18/23 @ 10:57 by LEONID Byrd) Father Thyroid cancer Diabetes Mother Rheumatoid arthritis Social History Smoking and tobacco/nicotine status: current every day tobacco/nicotine user Data Anesthesia Cardiac Studies: No Data to Display
[2023-12-23 08:43] VITALS: BP 136/84; PULSE 71; RESP 16; TEMP 36.1; O2SAT 93
[2023-12-23 08:59] VITALS: BP 147/91; PULSE 64; RESP 18
--- NOTE | 2023-12-23 09:11 | ANE.PACU2 ---
Inpatient post-anesthesia follow up: Airway intact: Yes Vital signs: Temperature 97 F Pulse Rate 64 Respiratory Rate 18 Blood Pressure 147/91 Pulse Oximetry 93 Oxygen Delivery Me thod Room Air Oxygen Flow Rate Fraction of Inspir ed Oxygen Hydration adequate: Yes Nausea and vomiting: No Pain level: 1 Mental status: Baseline
== END 2023-12-23 09:11 | disposition home or self-care (01) ==
PROVIDERS: PCP Family Medicine; Visit Provider Student in an Organized Health Care Education/Training Program
PROC: 0DJ08ZZ Inspection of Upper Intestinal Tract, Via Natural or Artificial Opening Endoscopic (ICD-10-PCS; CPT 43235; principal; 2023-12-23 08:20)
DX: Z87.11 Personal history of peptic ulcer disease (principal); K29.50 Unspecified chronic gastritis without bleeding; K21.00 Gastro-esophageal reflux disease with esophagitis, without bleeding; F17.200 Nicotine dependence, unspecified, uncomplicated; I10 Essential (primary) hypertension
CPT/HCPCS: 43239; 88305; 88342; J3010; J7030

== ENCOUNTER → 2024-01-06 08:41 | Outpatient (BNVA) | payer OTHER, SELFPAY | PROVIDERS: PCP Family Medicine; Visit Provider Family Medicine | DX: Z78.9 Other specified health status (principal); K25.9 Gastric ulcer, unspecified as acute or chronic, without hemorrhage or perforation; R51.9 Headache, unspecified | CPT/HCPCS: 86003; 86008; 86677; 87624 ==

== ENCOUNTER → 2024-01-15 07:43 | Outpatient (BNVA) | payer OTHER, SELFPAY | PROVIDERS: PCP Family Medicine; Visit Provider Podiatrist Foot & Ankle Surgery | DX: M79.671 Pain in right foot (principal); M21.611 Bunion of right foot; M21.41 Flat foot [pes planus] (acquired), right foot; M21.42 Flat foot [pes planus] (acquired), left foot; M25.871 Other specified joint disorders, right ankle and foot | CPT/HCPCS: 73630 ==

== ENCOUNTER 2024-01-22 08:18 | Outpatient (CLI) | payer OTHER, SELFPAY ==
--- NOTE | 2024-01-22 08:30 | MM_ITS ---
WS: [id number] Bilateral screening 3D tomosynthesis digital mammogram, 01/22/2024 8:46 AM Clinical Data: screening Comparison: None. Findings: No spiculated masses or clustered calcifications are seen. There are no secondary signs of carcinoma . MM/MM scr BI tomosynthesis [id number] Impression: Negative bilateral mammogram with no prior exam for review. Recommend annual screening mammograms. BIRADS: 1 - Negative. FOLLOW UP: 1 Year Follow-up DENSITY: There are scattered areas of fibroglandular density. The CAD checker/stocker was used
== END 2024-01-22 08:19 | disposition home or self-care (01) ==
LOC: RAD 08:19
PROVIDERS: PCP Family Medicine; Visit Provider Family Medicine
DX: Z12.31 Encounter for screening mammogram for malignant neoplasm of breast (principal)
CPT/HCPCS: 77063; 77067

== ENCOUNTER 2024-02-03 07:40 | Day surgery (SDC) | payer OTHER, SELFPAY ==
[2024-02-03 08:07] VITALS: BP 157/98; PULSE 84; RESP 18; TEMP 36.1; O2SAT 96; BMI 44.8
--- NOTE | 2024-02-03 08:29 | P.ANESASSM_ITS ---
Pre-Anesthetic Assessment Height/Weight: Height 1.7 m Weight 129.727 kg Temp Pulse Resp BP Pulse Ox O2 Del Method 97 F L 84 18 157/98 96 Room Air 02/03/24 08:07 02/03/24 08:07 02/03/24 08:07 02/03/24 08:07 02/03/24 08:07 02/03/24 08:07 Preop Diagnosis: screening Operation Date: 02/03/24 08:45 Proposed Procedures p Colonoscopy 92305, G0121, Z12.11(Not Applicable) - Speedy Aponte MD Familial anesthetic complications: none Was Beta Deo taken within 24 hours: N/A Was Clonidine taken within 24 hours: N/A Last intake: Intake Last Liquid Date 02/02/24 Last Liquid Time 21:30 Last Solid Date 02/01/24 Last Solid Time 22:00 Social Tobacco and No alcohol 0.5 pack(s) per day 36 pack years Exam alert, oriented x 3, clear to auscultation bilaterally and regular rate & rhythm Airway Submandibular: within normal limits Cervical ROM: within normal limits Mallampati: Class I Dentition: chipped and full Comments: Comments: poor Pulmonary None reported CV/HEM Hypertension None reported Hepatic None reported GI Gastroesophageal Reflux Disease Metabolic Morbid Obesity [facility] None reported Neuropsych Anxiety and Depression Anesthetic Plan ASA status: 2 Anesthesia: MAC Risk of > 500 ml blood loss (7ml/kg in children): No Medications/Allergies Home Medications Medication Instructions Recorded Confirmed Last Taken Type venlafaxine 150 mg 150 mg PO DAILY #30 caps 08/14/23 01/29/24 02/02/24 Rx capsule,extended release 24 hr amlodipine 5 mg tablet 5 mg PO BID #60 tabs 12/16/23 01/29/24 02/03/24 Rx pantoprazole 40 mg tablet,delayed 40 mg PO DAILY #30 tabs 12/16/23 01/29/24 02/02/24 Rx release (Protonix) sucralfate 100 mg/mL oral 5 ml PO QID #400 mL 12/16/23 01/29/24 02/02/24 Rx suspension (Carafate) omeprazole 10 mg capsule,delayed 10 mg PO BID 12/18/23 01/29/24 02/02/24 History release clonazepam 0.5 mg tablet 0.5 mg PO BID #60 tabs 01/14/24 01/29/24 02/03/24 Rx sole supports #1 ea 01/15/24 01/29/24 Unknown Rx Allergies Allergy/AdvReac Type Severity Reaction Status Date / Time lisinopril Allergy Intermediate cough Verified 01/15/24 07:38 [facility] Anesthesia Medical History Major depression Generalized anxiety disorder Family History Father Thyroid cancer Diabetes Mother Rheumatoid arthritis Social History Smoking and tobacco/nicotine status: never used tobacco/nicotine Data Anesthesia Cardiac Studies: No Data to Display
[2024-02-03] MEDS: sodium chloride 0.9% 1,000 ML 30 ML IV (08:37)
--- NOTE | 2024-02-03 09:11 | W.PM.OPSUD ---
Surgery/Procedure H&P Update DATE OF PROCEDURE: February 03, 2024 DATE H&P PERFORMED: 01/13/24 H&P UPDATE INFORMATION: I have reviewed H&P completed within last 30 days, I have examined patient prior to procedure and No changes to prior documentation PREOP DIAGNOSIS: screening PLANNED PROCEDURE: Operation Date: 02/03/24 08:45 Proposed Procedures p Colonoscopy 72323, G0121, Z12.11(Not Applicable) - Speedy Aponte MD
[2024-02-03 09:37] VITALS: BP 124/81; PULSE 81; RESP 18; TEMP 36.3; O2SAT 99
[2024-02-03 09:45] VITALS: BP 126/88; PULSE 76; RESP 18; TEMP 36.2; O2SAT 98
--- NOTE | 2024-02-03 09:57 | ANE.PACU2 ---
Inpatient post-anesthesia follow up: Airway intact: Yes Vital signs: Temperature 97.2 F Pulse Rate 76 Respiratory Rate 18 Blood Pressure 126/88 Pulse Oximetry 98 Oxygen Delivery Me thod Room Air Oxygen Flow Rate Fraction of Inspir ed Oxygen Hydration adequate: Yes Nausea and vomiting: No Pain level: 1 Mental status: Baseline
== END 2024-02-03 09:57 | disposition home or self-care (01) ==
PROVIDERS: PCP Family Medicine; Visit Provider Student in an Organized Health Care Education/Training Program
PROC: 0DJD8ZZ Inspection of Lower Intestinal Tract, Via Natural or Artificial Opening Endoscopic (ICD-10-PCS; CPT 45378; principal; 2024-02-03 08:45)
DX: Z12.11 Encounter for screening for malignant neoplasm of colon (principal); K64.4 Residual hemorrhoidal skin tags; I10 Essential (primary) hypertension; K21.9 Gastro-esophageal reflux disease without esophagitis; E66.01 Morbid (severe) obesity due to excess calories; Z68.41 Body mass index [BMI] 40.0-44.9, adult; F41.1 Generalized anxiety disorder; F32.A Depression, unspecified
CPT/HCPCS: 45378; 45380; J2704; J7030

== ENCOUNTER 2024-02-11 15:26 | Outpatient (CLI) | payer OTHER, SELFPAY | END 2024-02-11 15:27 | disposition home or self-care (01) | LOC: SPT 15:27 | PROVIDERS: PCP Family Medicine; Visit Provider Podiatrist Foot & Ankle Surgery | DX: Z46.89 Encounter for fitting and adjustment of other specified devices (principal); M21.611 Bunion of right foot; M21.40 Flat foot [pes planus] (acquired), unspecified foot; M25.871 Other specified joint disorders, right ankle and foot; M79.671 Pain in right foot | CPT/HCPCS: L3030 ==

== ENCOUNTER 2024-02-18 06:42 | Outpatient (CLI) | payer OTHER, SELFPAY ==
[2024-02-18 09:15] LABS: C.Diff PCR (Lab) NEGATIVE (Negative)
== END 2024-02-18 06:43 | disposition home or self-care (01) ==
PROVIDERS: PCP Family Medicine; Visit Provider Family Medicine
DX: R19.7 Diarrhea, unspecified (principal)
CPT/HCPCS: 87493

== ENCOUNTER → 2024-03-10 14:22 | Outpatient (BNVA) | payer OTHER, SELFPAY | PROVIDERS: PCP Family Medicine; Visit Provider Family Medicine | DX: R19.7 Diarrhea, unspecified (principal) | CPT/HCPCS: 87045; 87177; 87209; 87427; 87449 ==

== ENCOUNTER → 2024-04-12 16:19 | Outpatient (BNVA) | payer OTHER, SELFPAY | PROVIDERS: PCP Family Medicine; Visit Provider Family Medicine | DX: R10.9 Unspecified abdominal pain (principal) | CPT/HCPCS: 81000 ==

== ENCOUNTER 2024-04-15 15:17 | Outpatient (CLI) | payer OTHER, SELFPAY ==
[2024-04-15] MEDS: iohexol 350 mg/mL 500 mL Btl (per mL) PO (15:46)
[2024-04-15] MEDS: iohexol 350 mg/mL 500 mL Btl (per mL) IV (16:49)
--- NOTE | 2024-04-15 17:15 | CT_ITS ---
WS: [id number] CT ABDOMEN AND PELVIS WITH CONTRAST HISTORY: abd pain/ diarrhea TECHNIQUE: Imaging performed of the abdomen and pelvis with IV contrast. Single phase imaging of the abdomen. Coronal and sagittal reformats are submitted. All CT scans at [facility] use at [address] one of these dose optimization techniques: automated exposure control; mA and/or kV adjustment per patient size (includes targeted exams where dose is matched to clinical indication); or iterative re construction. IV CONTRAST: Omnipaque 350; 100 mL IV. Oral contrast: Yes. DLP: 1120.82 mGy.cm COMPARISON: 04/03/2023 Lower thorax: Lung bases are clear. Heart is normal size. Small hiatal hernia. Liver/biliary system: Normal size with no intrahepatic dilatation. Gallbladder: Status post cholecystectomy. Pancreas: Normal size pancreas and pancreatic duct. No adjacent inflammation. Spleen: Normal size spleen. No mass or infarct. Adrenal glands: Normal. Right kidney: Mild to moderate hydronephrosis with dilatation of the pelvis and early dilatation of t he calyces. Obstruction due to 3 mm calcification just distal to the UP junction. Distal ureter is no rmal caliber with no additional stones. No additional calcifications in the RIGHT kidney. Left kidney: Normal. Aorta: Mild atherosclerosis with no aneurysm. Lymphadenopathy: None. Free fluid: None. GI tract: Normal stomach. No small bowel obstruction. Diffuse mild constipation. No appendicitis. Abdominal wall: Unremarkable abdominal wall. No hernia. Pelvis: No free fluid or adenopathy within the pelvis. Bones: Moderate degenerative disc disease at L5-S1. CT/CT abdomen pelvis w con* [id number] IMPRESSION: 1. Mild to moderate RIGHT hydronephrosis secondary to a 3 mm calcification jus t distal to the UPJ. 2. No additional renal calcifications. 3. Prior cholecystectomy.
== END 2024-04-15 15:18 | disposition home or self-care (01) ==
LOC: RAD 15:19
PROVIDERS: PCP Family Medicine; Visit Provider Family Medicine
DX: R19.7 Diarrhea, unspecified (principal); R10.9 Unspecified abdominal pain; N13.2 Hydronephrosis with renal and ureteral calculous obstruction; M51.360 Other intervertebral disc degeneration, lumbar region with discogenic back pain only; M51.370 Other intervertebral disc degeneration, lumbosacral region with discogenic back pain only; Z90.49 Acquired absence of other specified parts of digestive tract
CPT/HCPCS: 74177

== ENCOUNTER → 2024-06-15 09:14 | Outpatient (BNVA) | payer OTHER, SELFPAY | PROVIDERS: PCP Family Medicine; Visit Provider Emergency Medicine | DX: J02.0 Streptococcal pharyngitis (principal) | CPT/HCPCS: 87880 ==